=== PATIENT | male | born 1970 | race Two or more races ===

== ENCOUNTER 2019-08-02 13:12 | Inpatient (IN) | payer MEDICAID, OTHER ==
[~2019-08-02] VITALS: Ht 170.2 cm; Wt 98.9 kg
[2019-08-02] MEDS ORDERED: SODIUM CHLORIDE 0.9% 500 ML IV ONE (13:54)
[2019-08-02 14:49] LABS: CHLORIDE 111 mEq/L (98-107)
[2019-08-02 14:52] LABS: BASOPHILS % 0.5 % (0.0-2.0); EOSINOPHILS % 1.2 % (0.0-5.0); HEMATOCRIT. 42.1 % (42.0-52.0); HEMOGLOBIN. 14.5 g/dL (14.0-18.0); MEAN CORPUSCULAR HEMOGLOBIN 32.6 pg (28.0-32.0); MEAN CORPUSCULAR VOLUME 94.6 fL (80.0-94.0); MEAN PLATELET VOLUME 9.7 fl (7.4-10.4); MONOCYTES % 6.5 % (2.0-8.0); NEUTROPHILS % 71.8 % (40.0-76.0); PLATELET 274 x1000/uL (130-400); RED BLOOD CELL COUNT 4.44 mill/uL (4.7-6.1); RED CELL DISTRIBUTION WIDTH 13.2 % (11.6-14.6)
[2019-08-02 14:55] LABS: ETHANOL BLOOD < 10 mg/dL
[2019-08-02 15:01] LABS: BETA HYDROXYBUTYRATE 0.1 mMol/L (0.0-0.3)
[2019-08-03] MEDS ORDERED: ACETAMINOPHEN 325MG TABLET PO PRN
[2019-08-03] MEDS ORDERED: HYDRALAZINE 20MG/ML VIAL IV PRN
[2019-08-03] MEDS ORDERED: GUAIFENESIN 200MG/10ML SUGAR FREE UDC PO PRN
[2019-08-03] MEDS ORDERED: DIPHENHYDRAMINE 50MG/ML VIAL IV PRN
[2019-08-03] MEDS ORDERED: HYDROCODONE/ACETAMINOPHEN 10/325MG TABLET PO PRN
[2019-08-03] MEDS ORDERED: ONDANSETRON HCL 4MG/2ML INJ IV PRN
[2019-08-03] MEDS ORDERED: MAGNESIUM/ALUMINUM HYDROXIDE/SIMETHICONE 30ML UDC PO PRN
[2019-08-03] MEDS ORDERED: LORAZEPAM 2MG/ML CPJ IV PRN
[2019-08-03] MEDS ORDERED: DOCUSATE SODIUM 100MG CAPSULE PO PRN
[2019-08-03] MEDS ORDERED: MORPHINE SULFATE 2 MG/ML CPJ (NOT FOR IM USE) IV PRN
[2019-08-03] MEDS ORDERED: IPRATROPIUM/ALBUTEROL 0.5-3(2.5)MG/3ML NEB HHN PRN
[2019-08-03] MEDS ORDERED: CLONIDINE 0.1MG TABLET PO PRN
[2019-08-03] MEDS: SODIUM CHLORIDE 0.9% INJ 3ML FLUSH IVF SCH ×3 (06:00→22:00)
[2019-08-03 06:39] VITALS: BP 126/75
[2019-08-03 08:06] VITALS: BP 121/76
[2019-08-03] MEDS ORDERED: ENOXAPARIN 40MG/0.4ML SYR SUBCUT SCH (09:00)
[2019-08-03 09:39] LABS: BASOPHILS % 0.7 % (0.0-2.0); EOSINOPHILS % 2.2 % (0.0-5.0); HEMATOCRIT. 37.6 % (42.0-52.0); HEMOGLOBIN. 12.8 g/dL (14.0-18.0); LYMPHOCYTES % 41.8 % (20.0-50.0); MEAN CORPUSCULAR HEMOGLOBIN 32.2 pg (28.0-32.0); MEAN CORPUSCULAR VOLUME 94.6 fL (80.0-94.0); MEAN PLATELET VOLUME 9.5 fl (7.4-10.4); MONOCYTES % 7.6 % (2.0-8.0); NEUTROPHILS % 47.7 % (40.0-76.0); PLATELET 211 x1000/uL (130-400); RED BLOOD CELL COUNT 3.97 mill/uL (4.7-6.1); RED CELL DISTRIBUTION WIDTH 13.1 % (11.6-14.6)
[2019-08-03 10:16] VITALS: BP 126/75
[2019-08-03] MEDS ORDERED: CHLO25TA2 MT (10:16)
[2019-08-03] MEDS ORDERED: SACU1TAB4 MT (10:16)
[2019-08-03] MEDS ORDERED: FAMO20TA8 MT (10:16)
[2019-08-03] MEDS ORDERED: EZET10TA13 PO (10:16)
[2019-08-03] MEDS ORDERED: ATOR-2 PO (10:16)
[2019-08-03] MEDS ORDERED: CARV25TA47 PO (10:16)
[2019-08-03] MEDS ORDERED: FENO145T25 PO (10:16)
[2019-08-03] MEDS ORDERED: CLOP75TA33 PO (10:16)
[2019-08-03] MEDS ORDERED: SPIR25TA6 PO (10:16)
[2019-08-03] MEDS ORDERED: ASPI-1158 PO (10:16)
[2019-08-03 10:43] LABS: T4 FREE 1.14 ng/dL (0.76-1.46)
[2019-08-03 10:56] LABS: CHLORIDE 110 mEq/L (98-107)
[2019-08-03 11:12] LABS: CREATINE KINASE MB FRACTION < 1.0 ng/mL (0.5-3.6)
[2019-08-03 11:15] LABS: CREATINE KINASE 86 IU/L (39-308)
[2019-08-03 12:06] VITALS: BP 130/73
[2019-08-03] MEDS: CLOPIDOGREL 75MG TABLET PO SCH (12:43)
[2019-08-03] MEDS: SODIUM CHLORIDE 0.9% 1,000 ML IV SCH (12:44)
[2019-08-03 16:09] VITALS: BP 131/82
[2019-08-03 17:49] LABS: CREATINE KINASE 81 IU/L (39-308)
[2019-08-03 17:50] LABS: CREATINE KINASE MB FRACTION < 1.0 ng/mL (0.5-3.6)
[2019-08-03 20:00] VITALS: BP 117/72
[2019-08-03] MEDS: ENOXAPARIN 30MG/0.3ML SYR SUBCUT SCH (21:00)
[2019-08-03] MEDS: ATORVASTATIN CALCIUM 20MG TABLET PO SCH (21:09)
[2019-08-03] MEDS: CARVEDILOL 3.125 MG TABLET PO SCH (21:10)
[2019-08-04] VITALS: BP 114/77
[2019-08-04] MEDS: SODIUM CHLORIDE 0.9% 1,000 ML IV SCH ×2 (00:35→13:26)
[2019-08-04 04:00] VITALS: BP 112/72
[2019-08-04] MEDS: SODIUM CHLORIDE 0.9% INJ 3ML FLUSH IVF SCH ×3 (05:31→21:13)
[2019-08-04 08:03] VITALS: BP 125/91
[2019-08-04] MEDS: CLOPIDOGREL 75MG TABLET PO SCH (09:17)
[2019-08-04] MEDS: ASPIRIN 81MG TABLET PO SCH (09:17)
[2019-08-04] MEDS: CARVEDILOL 3.125 MG TABLET PO SCH ×2 (09:18→21:08)
[2019-08-04] MEDS: ENOXAPARIN 30MG/0.3ML SYR SUBCUT SCH ×2 (09:19→21:12)
[2019-08-04 12:39] VITALS: BP 120/79
[2019-08-04] MEDS ORDERED: REGADENOSON 0.4 MG/5 ML IV NR (15:00)
[2019-08-04 16:12] VITALS: BP 113/83
[2019-08-04 18:20] LABS: CHLORIDE 108 mEq/L (98-107)
[2019-08-04 20:43] VITALS: BP 150/89
[2019-08-04] MEDS: ATORVASTATIN CALCIUM 20MG TABLET PO SCH (21:08)
[2019-08-04 21:19] LABS: CLARITY URINE CLEAR (CLEAR); COLOR URINE YELLOW (YELLOW); KETONES URINE NEGATIVE (NEGATIVE); LEUKOCYTE ESTERASE URINE NEGATIVE (NEGATIVE); NITRITE URINE NEGATIVE (NEGATIVE); OCCULT BLOOD URINE NEGATIVE (NEGATIVE); PH URINE 5.5 (4.5-8.0); PROTEIN URINE NEGATIVE (NEGATIVE); SPECIFIC GRAVITY URINE 1.019 (1.005-1.030); UROBILINOGEN URINE 0.2 E.U./dL (0.2-1.0)
[2019-08-05 00:36] VITALS: BP 114/72
[2019-08-05] MEDS: SODIUM CHLORIDE 0.9% 1,000 ML IV SCH (03:13)
[2019-08-05 04:00] VITALS: BP 120/66
[2019-08-05] MEDS: SODIUM CHLORIDE 0.9% INJ 3ML FLUSH IVF SCH ×2 (05:03→14:00)
[2019-08-05 06:15] LABS: BASOPHILS % 0.6 % (0.0-2.0); EOSINOPHILS % 2.9 % (0.0-5.0); HEMATOCRIT. 35.3 % (42.0-52.0); HEMOGLOBIN. 12.4 g/dL (14.0-18.0); LYMPHOCYTES % 49.2 % (20.0-50.0); MEAN CORPUSCULAR HEMOGLOBIN 32.9 pg (28.0-32.0); MEAN CORPUSCULAR VOLUME 93.9 fL (80.0-94.0); MEAN PLATELET VOLUME 9.8 fl (7.4-10.4); MONOCYTES % 7.1 % (2.0-8.0); NEUTROPHILS % 40.2 % (40.0-76.0); PLATELET 197 x1000/uL (130-400); RED BLOOD CELL COUNT 3.76 mill/uL (4.7-6.1)
[2019-08-05 06:35] LABS: CHLORIDE 111 mEq/L (98-107)
[2019-08-05 08:00] VITALS: BP 128/82
[2019-08-05] MEDS: CARVEDILOL 3.125 MG TABLET PO SCH ×2 (08:54→12:13)
[2019-08-05] MEDS: CLOPIDOGREL 75MG TABLET PO SCH ×2 (08:54→12:12)
[2019-08-05] MEDS: ENOXAPARIN 30MG/0.3ML SYR SUBCUT SCH ×2 (08:54→12:12)
[2019-08-05] MEDS: ASPIRIN 81MG TABLET PO SCH ×2 (08:54→12:12)
[2019-08-05] MEDS ORDERED: REGADENOSON 0.4 MG/5 ML IV ONE (09:23)
[2019-08-05 12:00] VITALS: BP 127/83
[2019-08-05 13:53] VITALS: BP 127/83
[2019-08-06 08:07] LABS: *CREATININE RANDOM URINE 102.6 mg/dL (Not Estab.); MICROALBUMIN RANDOM URINE <3.0 ug/mL (Not Estab.)
== END 2019-08-05 14:25 | disposition home or self-care (01) | DRG 469 ==
LOC: ER 13:12 → EDBEDREQ 14:02 → 6WST 22:06 → EDBEDREQSVC 22:08 → EDBEDREQTM 22:08 → EDBEDREQ 22:08 → ENRESERV 08-03 05:48 → 6WST 08-03 08:07
PROVIDERS: ADMIT Internal Medicine; ATTEND Internal Medicine
DX: N17.0 Acute kidney failure with tubular necrosis (principal); R65.10 Systemic inflammatory response syndrome (SIRS) of non-infectious origin without acute organ dysfunction; E87.1 Hypo-osmolality and hyponatremia; E87.5 Hyperkalemia; J45.901 Unspecified asthma with (acute) exacerbation; E11.65 Type 2 diabetes mellitus with hyperglycemia; I10 Essential (primary) hypertension; I25.10 Atherosclerotic heart disease of native coronary artery without angina pectoris; E78.5 Hyperlipidemia, unspecified; G89.29 Other chronic pain; I45.10 Unspecified right bundle-branch block; J44.9 Chronic obstructive pulmonary disease, unspecified; Z79.82 Long term (current) use of aspirin; I25.2 Old myocardial infarction; Z95.5 Presence of coronary angioplasty implant and graft; Z79.899 Other long term (current) drug therapy
CPT/HCPCS: 36415; 71045; 76770; 78452; 80048; 80053; 80061; 80320; 81003; 82010; 82043; 82550; 82553; 82570; 83036; 83605; 83735; 83880; 84145; 84439; 84443; 84484; 85025; 85379; 93005; 93017; 93306; 93970; 99285; A9500; J1650; J2785; J7030; J7040; G0480